=== PATIENT | female | born 2000 | race African-American/Black ===

== ENCOUNTER 2018-02-05 10:09 | Emergency (ER) | payer OTHER ==
[~2018-02-05] VITALS: Ht 165.1 cm; Wt 90.7 kg
[2018-02-05 11:03] VITALS: BP 118/66
[2018-02-05] MEDS ORDERED: PREDNISONE 20 M20 MG PO (11:45)
== END 2018-02-05 12:46 | disposition home or self-care (01) ==
LOC: ER 10:09
DX: M25.572 Pain in left ankle and joints of left foot (principal); M79.89 Other specified soft tissue disorders